=== PATIENT | female | born 1960 | race Caucasian/White ===

== ENCOUNTER 2016-12-08 11:38 | Emergency (ER) | payer OTHER ==
[~2016-12-08 11:38] MED LIST: FLEXERIL10 MG PO; HYDROCHLOROTHIA25 MG PO; VENTOLIN HFA18 G1 IH; ZESTRIL10 M3 PO
[2016-12-08] MEDS ORDERED: COZAAR50 M1 PO (11:43)
[2016-12-08 12:32] LABS: BASO % 0.9 % (0-2); BASO ABSOLUTE COUNT 0.1 tho/cmm (0.0-0.2); EOS % 1.2 % (0-7); EOSINOPHIL ABSOLUTE COUNT 0.1 tho/cmm (0.0-0.7); HCT-HEMATOCRIT 41.5 % (34.0-49.0); HGB-HEMOGLOBIN 14.2 gm/dl (12.0-15.5); IMMATURE GRANULOCYTES ABSOLUTE 0.01 tho/cmm (0-0.03); IMMATURE GRANULOCYTES PERCENT 0.1 % (0-0.3); LYMPH % 26.5 % (20-45); LYMPH ABSOLUTE COUNT 1.8 tho/cmm (0.8-4.5); MCH (MEAN CORPUSCULAR HGB) 32.3 pg (28.0-32.0); MCHC MEAN CORPUSCULAR HGB CONC 34.2 % (32.0-36.0); MCV (MEAN CELL VOLUME) 94.5 fl (82.0-96.0); MEAN PLATELET VOLUME 9.7 cmc (9.4-12.4); MONO % 6.3 % (0-12); MONOCYTE ABSOLUTE COUNT 0.4 tho/cmm (0.0-1.2); NEUTROPHIL ABSOLUTE COUNT 4.4 tho/cmm (1.6-8.0); NEUTROPHIL-AUTOMATED 4.4 tho/cmm (1.6-8.0); PLATELET COUNT 360 tho/cmm (150-450); RED BLOOD COUNT 4.39 mil/cmm (4.00-5.20); RED CELL DISTRIBUTION WIDTH 12.8 % (12.4-16.4); WHITE BLOOD COUNT 6.8 tho/cmm (4.0-10.0)
[2016-12-08 12:42] LABS: ANION GAP 13 mmol/L (0-20); BLOOD UREA NITROGEN 15 mg/dl (6-24); CARBON DIOXIDE-VENOUS 25 mmol/L (22-32); CHLORIDE 106 mmol/l (96-110); CREATININE 1.05 mg/dl (0.50-1.10); GLUCOSE 99 mg/dL (70-110); POTASSIUM 3.9 mmol/L (3.7-5.1); SODIUM 140 mmol/L (135-145); eGFR VALUE FOR BLACK 70 mL/Min
[2016-12-08 13:07] LABS: ESR-ERYTHROCYTE SED RATE 11 mm/hr (0-30)
== END 2016-12-08 14:18 ==
LOC: EDMED 11:38
PROVIDERS: Emergency Medicine
DX: G43.809 Other migraine, not intractable, without status migrainosus (principal); I10 Essential (primary) hypertension; Z79.899 Other long term (current) drug therapy
CPT/HCPCS: J1200; J1885; J2405; J7030